=== PATIENT | female | born 1965 | race Caucasian/White ===

== ENCOUNTER 2017-05-30 20:29 | Observation (INO) | payer MEDICARE ==
[~2017-05-30] VITALS: Ht 160 cm; Wt 65.8 kg
--- NOTE | 2017-05-30 21:48 | PHYS DOC ---
Past Medical History Additional Past Medical Histor: Thyroid; Complex pain syndrome (Rt Leg) Past Surgical History: Hysterectomy Additional Past Surgical Histo: Right leg; thyroidectomy Smoking: Cigarettes Social History Narrative: Adult General Chief Complaint Chief Complaint: CHEST WALL PAIN HPI HPI Patient is a 52 year old female who presents with chest pain. Patient is followed by Dr. Restrepo. He states this chest pain started yesterday. As been off and on. It's in her left chest goes to her left axilla and the left shoulder down the arm. It's up to 5 or 6 on the pain scale. No shortness of air. No nausea vomiting. She does have chronic left shoulder pain for rotator cuff tear has not been repaired. However this pain is in her chest and goes down to the arm which th shoulder pain has not in the past. Week ago showed low-grade fever with some coughing no hemoptysis. No persistent fever. No nausea vomiting diarrhea. No Recent travel. Family history POS father with CAGB; smokes tobacco; unknown cholesterol status. Review of Systems Review of Systems Constitutional: Denies fever or chills presently; low grade temp last week. Eyes: Denies change in visual acuity, redness, or eye pain HENT: Denies nasal congestion or sore throat Respiratory: non productive cough ; no shortness of breath Cardiovascular: see HPI GI: Denies abdominal pain, nausea, vomiting, bloody stools or diarrhea : Denies dysuria or hematuria Musculoskeletal: Denies back pain; chronic left shoulder joint pain; chronic right leg pain Integument: Denies rash or skin lesions Neurologic: Denies headache, focal weakness or sensory changes Family History Family History POS CABG in FATHER Current Medications Current Medications Current Medications Medications (Trade) Dose Ordered Sig/Giuseppe Start Time Stop Time Status Last Admin Dose Admin Nitroglycerin (Nitro-Bid Oint) 1 inch 1X ONCE 05/30/17 23:15 05/30/17 23:16 DC 05/30/17 23:23 1 INCH Sodium Chloride 1,000 ml @ 100 mls/hr Q10H 05/30/17 22:00 05/31/17 07:59 05/30/17 22:25 100 MLS/HR Allergies Allergies Allergies Coded Allergies Type Severity Reaction Last Updated Verified No Known Drug Allergies 05/30/17 No Physical Exam Physical Exam Constitutional: Well developed, well nourished, no acute distress, non-toxic appearance. HENT: Normocephalic, atraumatic, bilateral external ears normal, oropharynx moist, no oral exudates, nose normal. Eyes: PERRLA, EOMI, conjunctiva normal, no discharge. Neck: Normal range of motion, no tenderness, supple, no stridor. Cardiovascular:Heart rate regular rhythm, no murmur Lungs & Thorax: Bilateral breath sounds clear to auscultation Abdomen: Bowel sounds normal, soft, no tenderness, no masses, no pulsatile masses. Skin: Warm, dry, no erythema, no rash. Back: No tenderness, no CVA tenderness. Extremities: No tenderness, no cyanosis, no clubbing, ROM intact, no edema. Neurologic: Alert and oriented X 3, normal motor function, normal sensory function, no focal deficits noted. Current Patient Data Vital Signs Vital Signs Date Time Temp Pulse Resp B/P (MAP) Pulse Ox O2 Delivery O2 Flow Rate FiO2 05/30/17 23:15 70 13 142/75 (97) 96 05/30/17 21:40 98.6 Room Air 98.6 Lab Values Laboratory Tests Test 05/30/17 22:03 05/30/17 22:28 White Blood Count 11.0 x10^3/uL (4.0-11.0) Red Blood Count 4.07 x10^6/uL (3.50-5.40) Hemoglobin 13.2 g/dL (12.0-15.5) Hematocrit 39.0 % (36.0-47.0) Mean Corpuscular Volume 96 fL (79-100) Mean Corpuscular Hemoglobin 33 pg (25-35) Mean Corpuscular Hemoglobin Concent 34 g/dL (31-37) Red Cell Distribution Width 13.5 % (11.5-14.5) Platelet Count 317 x10^3/uL (140-400) Neutrophils (%) (Auto) 47 % (31-73) Lymphocytes (%) (Auto) 39 % (24-48) Monocytes (%) (Auto) 12 % (0-9) H Eosinophils (%) (Auto) 0 % (0-3) Basophils (%) (Auto) 1 % (0-3) Neutrophils # (Auto) 5.2 x10^3uL (1.8-7.7) Lymphocytes # (Auto) 4.3 x10^3/uL (1.0-4.8) Monocytes # (Auto) 1.3 x10^3/uL (0.0-1.1) H Eosinophils # (Auto) 0.0 x10^3/uL (0.0-0.7) Basophils # (Auto) 0.1 x10^3/uL (0.0-0.2) Prothrombin Time 12.6 SEC (11.7-14.0) Prothrombin Time INR 1.0 (0.8-1.1) D-Dimer (Damaris) 0.27 ug/mlFEU (0.00-0.50) Sodium Level 142 mmol/L (136-145) Potassium Level 3.6 mmol/L (3.5-5.1) Chloride Level 103 mmol/L (98-107) Carbon Dioxide Level 32 mmol/L (21-32) Anion Gap 7 (6-14) Blood Urea Nitrogen 18 mg/dL (7-20) Creatinine 0.7 mg/dL (0.6-1.0) Estimated GFR (Cockcroft-Gault) 87.2 Glucose Level 92 mg/dL (70-99) Calcium Level 8.5 mg/dL (8.5-10.1) Creatine Kinase 59 U/L (26-192) Creatine Kinase MB (Mass) < 0.5 ng/mL (0.0-3.6) Creatine Kinase MB Relative Index % (0-4) Troponin I Quantitative < 0.017 ng/mL (0.000-0.055) JY-Uhd-L-Type Natriuretic Peptide 18 pg/mL (0-124) Lipase 224 U/L (73-393) Laboratory Tests 05/30/17 22:03 Laboratory Tests 05/30/17 22:28 EKG EKG EKG interpreted by myself at 215 2 PM shows normal sinus rhythm rate of [address] changes. No ST elevation. Radiology/Procedures Radiology/Procedures CXR: interpreted by myself at 2330 PM: no acute infiltrate; no pleural effusion ; no pneumothorax Course & Med Decision Making Course & Med Decision Making Evaluated patient. She took aspirin at home. Nitropaste to chest wall. Spoke with Dr Restrepo; admit for r/o. MACE Scoring: History: Highly suspicious (2 points); Moderately suspicious (1 point). Slightly suspicious (0 point). EKG: ST segment depression (2 points). Nonspecific repolarization disturbance ( 1 point). normal (0 point) Age: Greater than 65 (2 points), 65-45 (1 point); less than 45 years old (0 points). Risk factors:> 3 risk factors (2 points), 1-2 risk factors (one point), no risk factors (0 point). Troponin: > 2 times normal (2 points), 1-2 times normal (1 point) normal limits (0 point) Total score: ____3__ Score % pts MACE/n MACE Policy 0-3: 32% 1.9% 0.05% Discharge 4-6: 51% 413/3136 13% 1.3% Observation Risk management 7-10: 17% 518/1045 50% 2.8% Observation Treatment, CAGb ENRICO score for NSTEMI: Age 65: No=0; Yes=1 3 CAD risk factors: Family history of CAD, hypertension, hypercholesterolemia, diabetes, family history of CAD, or current smoker: No=0; Yes=1 Known CAD (stenosis 50%: No=0; Yes=1 ASA use in past 7 days: No=0; Yes=1 Severe angina ( 2 episodes in 24 hrs): No=0; Yes=[address] changes 0.5m: No=0; Yes=1 Positive cardiac marker: No=0; Yes=1 Score:1 I have spoken with the patient and/or caregivers. I have explained the patient' s condition, diagnosis and treatment plan based on the information available to me at this time. I have answered the patient's and/or caregiver's questions and addressed any concerns. The patient and/or caregivers have as good an understanding of the patient's diagnosis, condition and treatment plan as can be expected at this point. The patient has been stabilized within the capability of the emergency department. The patient will be transported for further care and management or will be moved to an observation or inpatient service. I have communicated with the staff or medical practitioner taking over this patient's care. Dragon Disclaimer Dragon Disclaimer This electronic medical record was generated, in whole or in part, using a voice recognition dictation system. Departure Departure Impression: Primary Impression: Chest pain Disposition: ADMITTED INPATIENT Admitting Physician: Catrachita Restrepo Condition: STABLE Referrals: CATRACHITA RESTREPO MD (PCP) Problem Qualifiers Primary Impression: Chest pain Chest pain type: unspecified Qualified Codes: R07.9 - Chest pain, unspecified NANCY HATCH MD May 30, 2017 21:48
[2017-05-30] MEDS ORDERED: IV NORMAL SALINE 1000ML BAG 1,000 ML IV SCH (22:00)
[2017-05-30 22:12] LABS: BASO # 0.1 x10^3/uL (0.0-0.2); BASO % 1 % (0-3); EOS % 0 % (0-3); HEMOGLOBIN 13.2 g/dL (12.0-15.5); LYMPH # 4.3 x10^3/uL (1.0-4.8); LYMPH % 39 % (24-48); MEAN CORPUSCULAR HEMOGLOBIN 33 pg (25-35); MEAN CORPUSCULAR HGB CONC 34 g/dL (31-37); MEAN CORPUSCULAR VOLUME 96 fL (79-100); MONO % 12 % (0-9); NEUT % 47 % (31-73); PLATELET COUNT 317 x10^3/uL (140-400); RED BLOOD COUNT 4.07 x10^6/uL (3.50-5.40); RED CELL DISTRIBUTION WIDTH 13.5 % (11.5-14.5)
[2017-05-30 22:21] LABS: PROTHROMBIN TIME PATIENT 12.6 SEC (11.7-14.0)
[2017-05-30 22:40] LABS: CALCIUM 8.5 mg/dL (8.5-10.1); CREATININE 0.7 mg/dL (0.6-1.0); GFR 87.2; POTASSIUM 3.6 mmol/L (3.5-5.1)
[2017-05-30 22:53] LABS: CKMB MASS < 0.5 ng/mL (0.0-3.6); CREATINE KINASE 59 U/L (26-192)
[2017-05-30] MEDS ORDERED: NITROGLYCERIN OINT 1 GM PACKET. TP ONE ×2 (23:15→23:45)
[2017-05-30] MEDS ORDERED: ONDANSETRON PF 4 MG/2 ML VIAL. IV PRN (23:45)
[2017-05-31 01:50] VITALS: BP 119/67
[2017-05-31] MEDS: MORPHINE SULFATE 2 MG/ML DISP.SYRIN. IV PRN ×2 (02:44→04:55)
[2017-05-31] MEDS ORDERED: ZOLP5TAB PO (05:03)
--- NOTE | 2017-05-31 07:55 | RAD ---
EXAM: CHEST 1 VIEW History: Chest pain COMPARISON: 03/03/2005 TECHNIQUE: Single portable radiograph of the chest FINDINGS: The cardiac silhouette is unremarkable. The lungs are clear bilaterally. The costophrenic sulci are clear and well demarcated. IMPRESSION: No radiographic evidence of an acute cardiopulmonary process.
--- NOTE | 2017-05-31 07:57 | EKG ---
[facility] [address] [place] [address] Test Date: 2017-05-30 Test Time: 21:52:45 Pat Name: PATRICK CASTILLO Department: Room: 105 1 Gender: F Chief Pilot: : 1965 Requested By: CATRACHITA RESTREPO Order Number: [id number] Reading MD: Measurements Intervals [place] Rate: 74 P: 34 CO: 166 QRS: 25 QRSD: 80 T: 40 QT: 380 QTc: 422 Interpretive Statements SINUS RHYTHM QRS(T) CONTOUR ABNORMALITY CONSIDER ANTEROLATERAL MYOCARDIAL DAMAGE RI6.01 Unconfirmed report No previous ECG available for comparison
[2017-05-31 08:12] VITALS: BP 112/58
--- NOTE | 2017-05-31 08:37 | PDOC ---
GENERAL General: see dictated H&P. chest pain sharp in nature, negative tropnins, though has family hx doubt cardiac in nature. will get cardiology opinion with dc later today if all ok. Problems: VITAL SIGNS Vital Signs: Vital Signs Date Time Temp Pulse Resp B/P (MAP) Pulse Ox O2 Delivery O2 Flow Rate FiO2 05/31/17 08:12 72 11 112/58 (76) 95 Room Air 05/31/17 01:50 97.5 97.5 ALLERGIES Allergies: Allergies Coded Allergies Type Severity Reaction Last Updated Verified No Known Drug Allergies 05/30/17 No MEDS Medications: Current Medications Medications (Trade) Dose Ordered Sig/Giuseppe Start Time Stop Time Status Last Admin Dose Admin Morphine Sulfate 2 mg PRN Q2HR PRN 05/30/17 23:45 05/31/17 23:44 05/31/17 04:55 2 MG Nitroglycerin (Nitro-Bid Oint) 1 inch 1X ONCE 05/30/17 23:45 05/30/17 23:46 DC Ondansetron HCl (Zofran) 4 mg PRN Q8HRS PRN 05/30/17 23:45 05/31/17 23:44 Sodium Chloride 1,000 ml @ 100 mls/hr Q10H 05/30/17 22:00 05/31/17 07:59 DC 05/30/17 22:25 100 MLS/HR LAB Lab: Laboratory Tests Test 05/30/17 22:03 05/30/17 22:28 05/31/17 00:45 05/31/17 03:30 White Blood Count 11.0 x10^3/uL (4.0-11.0) Red Blood Count 4.07 x10^6/uL (3.50-5.40) Hemoglobin 13.2 g/dL (12.0-15.5) Hematocrit 39.0 % (36.0-47.0) Mean Corpuscular Volume 96 fL (79-100) Mean Corpuscular Hemoglobin 33 pg (25-35) Mean Corpuscular Hemoglobin Concent 34 g/dL (31-37) Red Cell Distribution Width 13.5 % (11.5-14.5) Platelet Count 317 x10^3/uL (140-400) Neutrophils (%) (Auto) 47 % (31-73) Lymphocytes (%) (Auto) 39 % (24-48) Monocytes (%) (Auto) 12 % (0-9) Eosinophils (%) (Auto) 0 % (0-3) Basophils (%) (Auto) 1 % (0-3) Neutrophils # (Auto) 5.2 x10^3uL (1.8-7.7) Lymphocytes # (Auto) 4.3 x10^3/uL (1.0-4.8) Monocytes # (Auto) 1.3 x10^3/uL (0.0-1.1) Eosinophils # (Auto) 0.0 x10^3/uL (0.0-0.7) Basophils # (Auto) 0.1 x10^3/uL (0.0-0.2) Prothrombin Time 12.6 SEC (11.7-14.0) Prothromb Time International Ratio 1.0 (0.8-1.1) D-Dimer (Damarsi) 0.27 ug/mlFEU (0.00-0.50) Sodium Level 142 mmol/L (136-145) Potassium Level 3.6 mmol/L (3.5-5.1) Chloride Level 103 mmol/L (98-107) Carbon Dioxide Level 32 mmol/L (21-32) Anion Gap 7 (6-14) Blood Urea Nitrogen 18 mg/dL (7-20) Creatinine 0.7 mg/dL (0.6-1.0) Estimated GFR (Cockcroft-Gault) 87.2 Glucose Level 92 mg/dL (70-99) Calcium Level 8.5 mg/dL (8.5-10.1) Creatine Kinase 59 U/L (26-192) Creatine Kinase MB (Mass) < 0.5 ng/mL (0.0-3.6) Creatine Kinase MB Relative Index % (0-4) Troponin I Quantitative < 0.017 ng/mL (0.000-0.055) < 0.017 ng/mL (0.000-0.055) < 0.017 ng/mL (0.000-0.055) CI-Sux-L-Type Natriuretic Peptide 18 pg/mL (0-124) Lipase 224 U/L (73-393) CATRACHITA RESTREPO MD May 31, 2017 08:37
[2017-05-31] MEDS ORDERED: CONTRAST GIVEN MC PRN (09:30)
[2017-05-31] MEDS ORDERED: IOHEXOL 300 MG/ML 75 ML VIAL IV ONE (09:30)
--- NOTE | 2017-05-31 10:07 | PDOC2 ---
CARDIAC CONSULT DATE OF CONSULT Date of Consult DATE: 05/31/17 TIME: 10:02 REASON FOR CONSULT Reason for Consult: Chest Pain REFERRING PHYSICIAN Referring Physician: Dr. Guerrero SOURCE Source: Chart review, Patient HISTORY OF PRESENT ILLNESS HISTORY OF PRESENT ILLNESS This is a 52 yo female who presented with complaints of chest pain. Began this past Tuesday, has been constant. Located in her left chest and radiates to her left arm. Describes as pressure. Worse with deep breath and with certain movements. Improved with hydrocodone. Denies any associated dizziness, diaphoresis, palpitations, or nausea/vomiting. Has noticed some fatigue over the last couple of weeks. No previous h/o cardiac disease or prior cardiac workup. PAST MEDICAL HISTORY Cardiovascular: No pertinent hx Pulmonary: No pertinent hx CENTRAL NERVOUS SYSTEM: Other (trigeminal neuralgia ) GI: No pertinent hx Heme/Onc: No pertinent hx Hepatobiliary: No pertinent hx Psych: No pertinent hx Rheumatologic: No pertinent hx Infectious disease: No pertinent hx ENT: No pertinent hx Renal/: No pertinent hx Endocrine: No pertinent hx, Hypothyroidism (secondary to thyroidectomy ) Dermatology: No pertinent hx PAST SURGICAL HISTORY Past Surgical History: Hysterectomy, Other (thyroidectomy, bladder sling) FAMILY HISTORY Family History: Coronary Artery Disease (father with CABG in 70's. ), Diabetes SOCIAL HISTORY Smoke: <1 pack per day ALCOHOL: social Drugs: None Lives: with Family CURRENT MEDICATIONS CURRENT MEDICATIONS Current Medications Medications (Trade) Dose Ordered Sig/Giuseppe Route PRN Reason Start Time Stop Time Status Last Admin Dose Admin Sodium Chloride 1,000 ml @ 100 mls/hr Q10H IV 05/30/17 22:00 05/31/17 07:59 DC 05/30/17 22:25 Nitroglycerin (Nitro-Bid Oint) 1 inch 1X ONCE TP 05/30/17 23:15 05/30/17 23:16 DC 05/30/17 23:23 Morphine Sulfate 2 mg PRN Q2HR PRN IV PAIN 05/30/17 23:45 05/31/17 23:44 05/31/17 04:55 ALLERGIES ALLERGIES: Coded Allergies: No Known Drug Allergies (Unverified , 05/30/17) ROS Review of System 14 point ROS conducted with pertinent positives noted above in HPI. PHYSICAL EXAM General: Alert, Oriented X3, Cooperative, No acute distress HEENT: Atraumatic, Mucous membr. moist/pink Lungs: Clear to auscultation, Normal air movement Heart: Regular rate, Normal S1, Normal S2, No murmurs Abdomen: Normal bowel sounds, Soft Extremities: No edema, Normal pulses Skin: No significant lesion Neuro: Normal speech, Sensation intact Psych/Mental Status: Mental status NL, Mood NL MUSCULOSKELETAL: No swelling VITALS VITALS Vital Signs Date Time Temp Pulse Resp B/P (MAP) Pulse Ox O2 Delivery O2 Flow Rate FiO2 05/31/17 08:12 72 11 112/58 (76) 95 Room Air 05/31/17 01:50 97.5 97.5 LABS Lab: Laboratory Tests Test 05/30/17 22:03 05/30/17 22:28 05/31/17 00:45 05/31/17 03:30 White Blood Count 11.0 x10^3/uL (4.0-11.0) Red Blood Count 4.07 x10^6/uL (3.50-5.40) Hemoglobin 13.2 g/dL (12.0-15.5) Hematocrit 39.0 % (36.0-47.0) Mean Corpuscular Volume 96 fL (79-100) Mean Corpuscular Hemoglobin 33 pg (25-35) Mean Corpuscular Hemoglobin Concent 34 g/dL (31-37) Red Cell Distribution Width 13.5 % (11.5-14.5) Platelet Count 317 x10^3/uL (140-400) Neutrophils (%) (Auto) 47 % (31-73) Lymphocytes (%) (Auto) 39 % (24-48) Monocytes (%) (Auto) 12 % (0-9) Eosinophils (%) (Auto) 0 % (0-3) Basophils (%) (Auto) 1 % (0-3) Neutrophils # (Auto) 5.2 x10^3uL (1.8-7.7) Lymphocytes # (Auto) 4.3 x10^3/uL (1.0-4.8) Monocytes # (Auto) 1.3 x10^3/uL (0.0-1.1) Eosinophils # (Auto) 0.0 x10^3/uL (0.0-0.7) Basophils # (Auto) 0.1 x10^3/uL (0.0-0.2) Prothrombin Time 12.6 SEC (11.7-14.0) Prothromb Time International Ratio 1.0 (0.8-1.1) D-Dimer (Damaris) 0.27 ug/mlFEU (0.00-0.50) Sodium Level 142 mmol/L (136-145) Potassium Level 3.6 mmol/L (3.5-5.1) Chloride Level 103 mmol/L (98-107) Carbon Dioxide Level 32 mmol/L (21-32) Anion Gap 7 (6-14) Blood Urea Nitrogen 18 mg/dL (7-20) Creatinine 0.7 mg/dL (0.6-1.0) Estimated GFR (Cockcroft-Gault) 87.2 Glucose Level 92 mg/dL (70-99) Calcium Level 8.5 mg/dL (8.5-10.1) Creatine Kinase 59 U/L (26-192) Creatine Kinase MB (Mass) < 0.5 ng/mL (0.0-3.6) Creatine Kinase MB Relative Index % (0-4) Troponin I Quantitative < 0.017 ng/mL (0.000-0.055) < 0.017 ng/mL (0.000-0.055) < 0.017 ng/mL (0.000-0.055) CK-Wis-L-Type Natriuretic Peptide 18 pg/mL (0-124) Lipase 224 U/L (73-393) ASSESSMENT/PLAN ASSESSMENT/PLAN 1. Chest pain, atypical; most probably MSK in origin. troponin series normal- AMI ruled out. EKG shows SR with t-wave inversion of lead V1. 2. Tobaccoism; discussed and encouraged cessation Recommendations Check lipids- statin therapy if indicated. Given symptomatology and risk factors, will proceed with MPI with r/o ischemia. Problems: DEMETRA MA APRN May 31, 2017 10:07
[2017-05-31 10:44] LABS: CHOLESTEROL/HDL RATIO 4.6
[2017-05-31 12:00] VITALS: BP 125/79
[2017-05-31] MEDS ORDERED: REGADENOSON 0.4 MG/5 ML DISP.SYRIN. IV ONE (13:15)
--- NOTE | 2017-05-31 14:25 | RAD ---
EXAM: CT angiography of the chest with intravenous contrast. HISTORY: Chest pain. TECHNIQUE: Computed tomographic images of the chest were obtained following the administration of 75 cc Omnipaque 300 intravenous contrast according to angiography protocol. Multiplanar reformatting was performed and three-dimensional maximum intensity projection images were obtained. One or more of the following individualized dose reduction techniques were utilized for this examination: 1. Automated exposure control. 2. Adjustment of the mA and/or kV according to patient size. 3. Use of iterative reconstruction technique. COMPARISON: None. FINDINGS: There is no evidence of pulmonary embolism. The heart is normal in size. The aorta is normal in caliber. There is atherosclerotic plaque within the proximal left subclavian artery, with less than 50% stenosis. There are prominent mediastinal and hilar lymph nodes, likely physiologic in etiology. No pathologically enlarged lymph node is seen. There is no pneumothorax or pleural effusion. There is no infiltrate. There is posterior dependent and basilar atelectasis. There is a tiny cyst or pneumatocele within the right lower lobe. No suspicious pulmonary nodule is seen. There is apical pleural-parenchymal scarring. The upper abdomen is unremarkable. No suspicious osseous lesion is seen. IMPRESSION: No evidence of pulmonary embolism or alternative acute pulmonary finding.
[2017-05-31] MEDS ORDERED: MORPHINE SULFATE 4 MG/ML DISP.SYRIN. IV PRN (14:57)
[2017-05-31 16:00] VITALS: BP 124/57
--- NOTE | 2017-05-31 16:17 | RAD ---
APPROVED REPORT Test Type: Pharmacological Stress Nurse/Tech: Mary Kay Dillon R.N. Test Indications: chest pain Cardiac History: smoker Medications: see ehr Medical History: see ehr Resting ECG: sr Resting Heart Rate: 83 bpm Resting Blood Pressure: 132/71mmHg Pretest Chest Pain: Atypical angina Nurse/Tech Notes lungs cta, heart tones regular Consent: The procedure was explained to the patient in lay terms. Informed consent was witnessed. Taiwo eout was entered into iRule. History and Stress Test performed by RT Santino (Mat) (N) Pharm. Details Pharmacologic stress testing was performed using 0.4mg per 5ml of regadenoson given intravenously ove r 7-10 seconds. Stress Symptoms No chest pain or symptoms. POST EXERCISE Reason for Termination: Infusion complete Target HR: No Max HR: 119 bpm Max Blood Pressure: 120/53mmHg Chest Pain: No. Arrhythmia: No. ST Change: No. INTERPRETATION Stress EKG Conclusion: The resting EKG showed a sinus rhythm and nonspecific ST segment changes. The stress EKG showed no significant changes from baseline. No EKG evidence of stress-induced ischemia. Imaging Protocol IMAGE PROTOCOL: Rest Tc-99m/stress Tc-99m 1 day Rest: Stress: Viability: Radiopharm.Tc99m [id number] Sestamibi Ixtw46nZw 34mCi Duration 17min. 12min. Img Date 05/31/2017 05/31/2017 Inj-Img Yooh79hxx. 60min. STRESS DATA End Diast. Vol.62.0mlAv. Heart Rate80.0bpm End Syst. Vol.6.0mlCO Index BSA0.0L/min Myocardial Bltd799.0gEject. Pzdyclwa35.0% Stress Rates Pk. Fill Rate3.29EDV/secLVtime Pk. Fill 192.12msec Pk. Empty Rate4.70ESV/secLVtime Pk. Mpnll691.17msec 09/07 Pk. Fill1.65EDV/sec Stress Scores Regional WT0.00Summed WT0.00 Regional WM0.00Summed WM0.00 LV Perfusion The stress scans showed no significant defects. The rest scans showed no significant defects. Nuclear imaging shows no reversible ischemia or infarct. Wall Motion Normal left ventricular systolic function with an ejection fraction of greater than 70%. LV Perf. Quant 17 Seg. SSS0.00 17 Seg. SRS0.00 17 Seg. SDS0.00 Stress Defect Extent (% LAD)0.00Rest Defect Extent (% LAD)0.00Rev. Defect Extent (% LAD)0.00 Stress Defect Extent (% LCX) 0.00Rest Defect Extent (% LCX)0.00Rev. Defect Extent (% LCX)0.00 Stress Defect Extent (% RCA)0.00Rest Defect Extent (% RCA)0.00Rev. Defect Extent (% RCA)0.00 Stress Defect Extent (% DAVID)0.00Rest Defect Extent (% DAVID)0.00Rev. Defect Extent (% DAVID)0.00 Conclusion 1. No EKG evidence of stress-induced ischemia. 2. Nuclear imaging shows no reversible ischemia or infarct. 3. Good LV systolic function with an ejection fraction of greater than 70%. 4. Low risk Lexiscan nuclear stress test.
--- NOTE | 2017-06-01 19:47 | HP ---
ADMIT DATE: CHIEF COMPLAINT AND HISTORY OF PRESENT ILLNESS: This 52-year-old white female is well known to me from followup in the office. She presented to the Emergency Room on the day of admission with chest pain. She stated it started the day prior. It has been off and on. It is in her left chest, goes up into her left axilla and down the left arm. She denied any associated cardiac symptoms described as sharp in nature. Noted that her breath would sometimes intensify it. She denied any positional change with the pain and was admitted with chest pain to the hospital per the Emergency Room. PAST MEDICAL HISTORY: Remarkable for thyroid, complex pain syndrome in the right leg. PAST SURGICAL HISTORY: She has had a prior hysterectomy, thyroidectomy. SOCIAL HISTORY: She is a smoker, does not abuse alcohol and does not use drugs. , lives at home with her . FAMILY HISTORY: Positive for atherosclerotic heart disease. ALLERGIES: She has no known drug allergies. MEDICATIONS: Brought with the patient, listed on the computer and have been addressed. REVIEW OF SYSTEMS: As mentioned above. PHYSICAL EXAMINATION: GENERAL: She is a well-developed, well-nourished white female, in no acute distress at time of my examination. VITAL SIGNS: Stable. She is afebrile. HEAD, EYES, EARS, NOSE AND THROAT: Reveal some very mild exophthalmos. NECK: Supple without any thyromegaly. CHEST: Clear to auscultation and percussion. HEART: Regular rate and rhythm without S3, S4 or murmur. There is no palpable tenderness to the chest wall on examination. ABDOMEN: Soft, nontender, without hepatosplenomegaly or masses. EXTREMITIES: Without cyanosis, clubbing or edema. NEUROLOGIC: She is intact. Initial troponin was negative. IMPRESSION: 1. Chest pain, atypical, likely not cardiac but a family history. 2. Other problems listed above. PLAN: The patient has been admitted. I am going to get a CT scan with contrast to rule out pulmonary embolism. Cardiology has been consulted. The patient will be monitored, managed and treated appropriately. CATRACHITA RESTREPO MD DR: TERA/treva JOB#: [id number] / [id number]
--- NOTE | 2017-06-02 06:33 | DS ---
DATE OF DISCHARGE: 05/31/2017 PRIMARY DIAGNOSIS: Noncardiac pleuritic chest pain. ADDITIONAL DIAGNOSES: Hypothyroidism following hyperthyroidism, which has been treated and hyperlipidemia. CHIEF COMPLAINT AND HISTORY OF PRESENT ILLNESS: This is a 52-year-old white female admitted with chest pain to the Emergency Room with sharp ____ breath, non-reproducible by pressure. It has been going off and on for over a day and was admitted from the Emergency Room to the hospital. SUMMARY OF STAY: The patient was admitted. Troponins were negative. TSH was very mildly elevated. She had negative CT scan chest for pulmonary embolism and negative nuclear medicine cardiac scan. It was felt by Cardiology she can be safely discharged on a regular home routine and this was done on the day of discharge. DISPOSITION: The patient is discharged to home. Regular diet. Activity as tolerated. Office in 1 week. DISCHARGE MEDICATIONS: Listed on the med rec and have been addressed and her regular home medications. CATRACHITA RESTREPO MD DR: TERA/treva JOB#: [id number] / [id number] Catrachita Rios MD
== END 2017-05-31 17:15 | disposition home or self-care (01) ==
LOC: ER 20:29 → ED HOLD 23:20 → 1 WEST ICU 05-31 01:40
PROVIDERS: ADMIT Family Medicine; ATTEND Family Medicine
DX: R07.89 Other chest pain (principal); F17.210 Nicotine dependence, cigarettes, uncomplicated; E03.9 Hypothyroidism, unspecified; G89.29 Other chronic pain; Z90.710 Acquired absence of both cervix and uterus; Z82.49 Family history of ischemic heart disease and other diseases of the circulatory system; Z83.3 Family history of diabetes mellitus
CPT/HCPCS: 36415; 71010; 71275; 78452; 80048; 80061; 82553; 83690; 83880; 84443; 84484; 85025; 85379; 85610; 87641; 93005; 93017; 96361; 96374; 96376; 99285; 99406; A9500; G0378; J2270; J2785; J7030; Q9967; G0379